=== PATIENT | female | born 1970 | race Hispanic/Latino ===

== ENCOUNTER 2017-08-15 23:01 | Emergency (ER) | payer SELFPAY ==
[2017-08-16] MEDS ORDERED: ONDANSETRON HCL 4 MG/2 ML VIAL ONE (00:45)
== END 2017-08-16 01:17 | disposition home or self-care (01) ==
LOC: EDH 23:01
DX: A09 Infectious gastroenteritis and colitis, unspecified (principal); J34.89 Other specified disorders of nose and nasal sinuses; M79.1 Myalgia; G89.29 Other chronic pain; M54.9 Dorsalgia, unspecified; I10 Essential (primary) hypertension; Z88.6 Allergy status to analgesic agent; Z72.0 Tobacco use; Z98.890 Other specified postprocedural states
CPT/HCPCS: 81025; 87804 ×2; 96374; 99284; J2405

== ENCOUNTER 2017-10-14 09:10 | Emergency (ER) | payer SELFPAY ==
[2017-10-14 09:50] LABS: BASOPHILS % (AUTO) 0.5 % (0.0-5.0); EOSINOPHILS % (AUTO) 2.1 % (0.0-8.0); LYMPHOCYTES % (AUTO) 24.3 % (21.0-51.0); MEAN CORPUSCULAR HEMOGLOBIN 29.1 pg (27.0-33.0); MEAN CORPUSCULAR HGB CONC 33.4 g/dL (32.0-36.0); MONOCYTES % (AUTO) 5.3 % (3.0-13.0); NEUTROPHILS % (AUTO) 67.8 % (40.0-77.0); NUCLEATED RED BLOOD CELLS 0.1 % (0.0-0.19); PLATELET COUNT (AUTO) 202 K/uL (130-400); RED BLOOD CELL COUNT(AUTO) 4.83 MIL/uL (4.00-5.50); WHITE BLOOD COUNT (AUTO) 7.7 K/uL (4.8-10.8)
[2017-10-14] MEDS ORDERED: MORPHINE SULFATE 4 MG/1ML SYG ONE (09:55)
[2017-10-14] MEDS ORDERED: ONDANSETRON HCL MDV 20ML 2 MG/ML VIAL ONE (09:56)
[2017-10-14 10:01] LABS: CREATININE 0.8 mg/dL (0.5-1.5); POTASSIUM 3.6 mmol/L (3.5-5.1)
[2017-10-14 10:06] LABS: ALBUMIN 3.4 g/dL (3.5-5.0); BILIRUBIN,TOTAL 0.2 mg/dL (0.2-1.0); TOTAL PROTEIN, SERUM 7.2 g/dL (6.0-8.3)
[2017-10-14] MEDS ORDERED: IOPAMIDOL-370 75 ML VIAL IV ONE (10:36)
== END 2017-10-14 12:52 | disposition home or self-care (01) ==
LOC: EDH 09:10
DX: I10 Essential (primary) hypertension (principal); R07.89 Other chest pain; Z88.6 Allergy status to analgesic agent
CPT/HCPCS: 36415; 71045; 71275; 80053; 82550; 84484; 85025; 93005; 96374; 96375; 99285; J2270; Q9967

== ENCOUNTER 2018-05-12 21:15 | Emergency (ER) | payer OTHER ==
[2018-05-12] MEDS ORDERED: TETRACAINE HCL 0.5% 4 ML OPHTH SOLN ONE (21:48)
== END 2018-05-12 23:06 | disposition home or self-care (01) ==
LOC: EDH 21:15
DX: H57.12 Ocular pain, left eye (principal); R51 Headache; I10 Essential (primary) hypertension; Z72.0 Tobacco use; Z88.6 Allergy status to analgesic agent
CPT/HCPCS: 70450

== ENCOUNTER 2019-01-26 14:39 | Emergency (ER) | payer OTHER | END 2019-01-26 15:51 | disposition home or self-care (01) | LOC: EDH 14:39 | DX: S60.222A Contusion of left hand, initial encounter (principal); I10 Essential (primary) hypertension; Z88.6 Allergy status to analgesic agent; Z72.0 Tobacco use; X58.XXXA Exposure to other specified factors, initial encounter; Y93.89 Activity, other specified; Y92.098 Other place in other non-institutional residence as the place of occurrence of the external cause; Y99.8 Other external cause status | CPT/HCPCS: 73130 ==

== ENCOUNTER 2019-05-24 19:09 | Emergency (ER) | payer OTHER ==
[2019-05-24 19:53] LABS: INR 0.95 (0.85-1.15); PARTIAL THROMBOPLASTIN TIME 26.3 SEC (26.3-35.5)
[2019-05-24 19:56] LABS: BASOPHILS % (AUTO) 1.4 % (0.0-5.0); EOSINOPHILS % (AUTO) 3.1 % (0.0-8.0); HEMATOCRIT 41.3 % (36-48); LYMPHOCYTES % (AUTO) 30.5 % (21.0-51.0); MEAN CORPUSCULAR HEMOGLOBIN 29.3 pg (27.0-33.0); MEAN CORPUSCULAR HGB CONC 33.6 g/dL (32.0-36.0); MEAN CORPUSCULAR VOLUME 87.2 fL (79-99); MONOCYTES % (AUTO) 5.4 % (3.0-13.0); NEUTROPHILS % (AUTO) 59.6 % (40.0-77.0); NUCLEATED RED BLOOD CELLS 0.3 % (0.0-0.19); PLATELET COUNT (AUTO) 217 K/uL (130-400); RED BLOOD CELL COUNT(AUTO) 4.74 MIL/uL (4.00-5.50); RED CELL DISTRIBUTION WIDTH 13.6 % (11.0-15.5); WHITE BLOOD COUNT (AUTO) 8.6 K/uL (4.8-10.8)
[2019-05-24 20:23] LABS: CREATININE 0.9 mg/dL (0.5-1.5); POTASSIUM 4.1 mmol/L (3.5-5.1)
[2019-05-24 20:36] LABS: ALBUMIN 3.4 g/dL (3.5-5.0); BILIRUBIN,TOTAL 0.3 mg/dL (0.2-1.0); THYROID STIMULATING HORMONE 3.51 uIU/mL (0.36-3.74); TOTAL PROTEIN, SERUM 7.4 g/dL (6.0-8.3)
[2019-05-24] MEDS ORDERED: SODIUM CHLORIDE 0.9% 1000ML 1,000 ML IV ONE (20:53)
[2019-05-24 21:00] LABS: APPEARANCE,URINE Clear (CLEAR); BILIRUBIN,URINE Negative (NEGATIVE); COLOR,URINE Yellow (YELLOW); GLUCOSE, URINE (UA) Negative (NEGATIVE); KETONES,URINE Negative (NEGATIVE); LEUKOCYTE ESTERASE ,URINE Negative (NEGATIVE); NITRATE,URINE Negative (NEGATIVE); OCCULT BLOOD,URINE Large (NEGATIVE); PROTEIN,URINE Negative (NEGATIVE); UROBILINOGEN,URINE 0.2 mg/dL (0.2-1.0)
[2019-05-24 21:04] LABS: HCG,QUAL RESULT NEGATIVE (NEGATIVE)
[2019-05-24 21:08] LABS: AMPHET/METH SCREEN,URINE NEGATIVE (NEGATIVE); BARBITURATE SCREEN, URINE NEGATIVE (NEGATIVE); BENZODIAZEPINES SCREEN,URINE NEGATIVE (NEGATIVE); CANNABINOID SCREEN,URINE NEGATIVE (NEGATIVE); COCAINE SCREEN,URINE NEGATIVE (NEGATIVE); OPIATE SCREEN,URINE NEGATIVE (NEGATIVE); PHENCYCLIDINE SCREEN,URINE NEGATIVE (NEGATIVE)
[2019-05-24 21:11] LABS: BACTERIA,URINE Few /HPF (None Seen); SQUAMOUS EPITHELIAL CELL,UR Few /HPF (0-2); WBC,URINE 0-1 /HPF (0-1)
== END 2019-05-24 21:33 | disposition home or self-care (01) ==
LOC: EDH 19:09
DX: R20.2 Paresthesia of skin (principal); I10 Essential (primary) hypertension; R42 Dizziness and giddiness; E78.00 Pure hypercholesterolemia, unspecified; Z88.6 Allergy status to analgesic agent
CPT/HCPCS: 36415; 80053; 80305; 81001; 81025; 82550; 84443; 84484; 85025; 85610; 85730; 93005; 99285; J7030